=== PATIENT | female | born 1965 | race African-American/Black ===

== ENCOUNTER 2018-07-15 20:43 | Inpatient (IN) ==
[2018-07-15] MEDS ORDERED: G.I. COCKTAIL PO ONE (21:09)
[2018-07-15] MEDS ORDERED: PROTONIX PO ONE (21:10)
[2018-07-15] MEDS ORDERED: BENTYL IM ONE (21:10)
[2018-07-15 21:43] LABS: BASO# 0.03 X1000 (0.0-0.2); BASO% 0.3 % (0.0-0.8); EOS# 0.18 X1000 (0.0-0.7); EOS% 1.8 % (0.0-10.0); HEMATOCRIT 41.6 % (37.0-47.0); HEMOGLOBIN 14.1 g/dL (12.0-16.0); LYMPH# 2.57 X1000 (1.2-3.4); LYMPH% 26.2 % (20.5-51.1); MCH 28.1 PG (27-31); MCHC 33.9 g/dL (33-37); MONO% 9.2 % (1.7-9.3); MPV 12.7 FL (7.4-10.4); NEUT# 6.13 X1000 (1.4-6.5); NEUT% 62.5 % (42.2-75.2); PLT 214 X1000 (130-400); RBC 5.01 XMIL (4.2-5.4); RDW 13.9 % (11.5-14.5); WBC 9.81 X1000 (4.8-10.8)
[2018-07-15] MEDS ORDERED: ZOFRAN IM ONE (21:49)
[2018-07-15] MEDS ORDERED: NS 1,000 ML IV ONE (22:07)
[2018-07-15 22:21] LABS: AGAP 14; ALB/GLOB RATIO 0.9; ALBUMIN 3.8 g/dL (3.5-5.0); ALKALINE PHOSPHATASE 192 U/L (32-104); AMYLASE 62 U/L (20-200); BUN 10 mg/dL (8-22); CALCIUM 9.6 mg/dL (8.8-10.2); CHLORIDE 92 mmol/L (98-107); COSMO 291; CREATININE 0.8 mg/dL (0.5-0.9); ESTIMATED GFR > 60; GOT 12 U/L (10-30); GPT 12 U/L (10-36); LIPASE 120 U/L (13-60); POTASSIUM 4.3 mmol/L (3.5-5.1); SODIUM 129 mmol/L (136-145); TCO2 23 mmol/L (25-35); TOTAL BILIRUBIN 0.58 mg/dL (0.20-1.00); TOTAL PROTEIN 7.9 g/dL (6.3-8.3)
[2018-07-15 22:22] LABS: GLUCOSE 691 mg/dL (70-104)
[2018-07-15 22:47] LABS: BILIRUBIN URINE NEGATIVE (NEGATIVE); BLOOD URINE NEGATIVE (NEGATIVE); COLOR STRAW; GLUCOSE URINE >1000 mg/dL (NEGATIVE); KETONE URINE TRACE mg/dL (NEGATIVE); LEUKOCYTES URINE NEGATIVE (NEGATIVE); NITRITE URINE NEGATIVE (NEGATIVE); PH URINE 5.5; PROTEIN URINE NEGATIVE (NEGATIVE); SP GRAVITY URINE 1.033; TURBIDITY URINE CLEAR (CLEAR); UR EPITHELIAL CELLS <10 /HPF (<10); URINE BACTERIA NEGATIVE /HPF; URINE RBC <10 /HPF (<10); URINE SOURCE CLEAN CATCH; URINE WBC <10 /HPF (<10); UROBILINOGEN URINE NORMAL (NORMAL)
[2018-07-15] MEDS ORDERED: HUMULIN R IV ONE (22:53)
[2018-07-16 00:08] LABS: ALLEN TEST YES; BE 1.9 mmoll (-3.0-3.0); BLOOD TYPE ARTERIAL; HCO3-(ACT) 26.3 mmoll (20.0-26.0); METHB 0.9 % (0.0-1.5); O2(CT) 18.7 mL/dL (15.0-23.0); O2HB 94.4 % (95.0-99.0); PCO2(98.6) 41 mmHg (35-45); PO2(98.6) 79 mmHg (60-100); SAMPLE BLOOD; SAO2 96.6 % (95.0-100.0); THB 14.1 g/dL (11.5-17.4); pH(98.6) 7.42 (7.35-7.45)
[2018-07-16 00:09] LABS: MODALITY ROOM AIR
--- NOTE | 2018-07-16 01:05 | HISTORY AND PHYSICAL ---
PRIMARY CARE PHYSICIAN: Dr. Mae. CHIEF COMPLAINT: Nausea, epigastric pain and urinary frequency for the past week. HISTORY OF PRESENTING ILLNESS: The patient is a 53-year-old female with a history of sarcoidosis who presented to the emergency department with a 1-week history of having persistent nausea, epigastric pain and increased urinary frequency. The patient states that the pain was worsening and she was having more nausea and subsequently she had come to the emergency department. In the ED she was evaluated, she had laboratories drawn that did show that she had elevated blood glucose in the 600 range, and also elevated lipase. Due to the suspicion of pancreatitis it was thought that she would need admission for further management. At the time of my examination the patient denied any headache, fever, chills, chest pain or shortness of breath, but complained of nausea, epigastric pain, increased urinary frequency and thirst. PAST MEDICAL HISTORY: Includes sarcoidosis. PAST SURGICAL HISTORY: Cholecystectomy. ALLERGIES: Codeine. CURRENT MEDICATIONS: None. SOCIAL HISTORY: No history of smoking. Admits to social alcohol use. Denies any illicit drug use. FAMILY HISTORY: No history of coronary disease. REVIEW OF SYSTEMS: Fourteen point review of system is as in HPI. Other systems negative. PHYSICAL EXAMINATION: GENERAL: A cooperative friendly female. She is resting comfortably now. VITAL SIGNS: Temperature 98.3 degrees, pulse 74, respiration 18, blood pressure 154/97. HEENT: Atraumatic, normocephalic. Extraocular movements intact. PERRLA. NECK: Supple. CHEST: Clear to auscultation. CARDIOVASCULAR: Regular rate and rhythm. S1, S2. ABDOMEN: Soft. Epigastric tenderness. EXTREMITIES: No edema. NEUROLOGIC: Awake, alert and oriented x3. : No bladder distention. SKIN: Warm. LABORATORIES AND STUDIES: WBC is 9.81, hemoglobin 14.1, hematocrit 41.6, platelets 214,000. Lipase is 120, glucose 61, sodium 129, potassium 4.3, chloride 92, CO2 of 23, BUN is 10, creatinine is 0.8, glucose is 691. ASSESSMENT: The patient is a 53-year-old female with a history of sarcoidosis who presented to emergency department with a 1-week history of persistent nausea and epigastric pain. She was also having increased thirst and frequency during this time. She was evaluated in the emergency department. She had elevated lipase and was suspicious for pancreatitis. Subsequently she will need admission for further management. 1. Suspected pancreatitis. 2. Hypoglycemia. We will need to rule out new onset of diabetes. 3. Abnormal CT- with suspicious of crohns PLAN: 1. We will admit the patient to the medical floor with telemetry. 2. We will keep the patient NPO. Continue supportive treatment, IV fluids, antiemetics, pain control. 3. We will monitor blood glucose and put the patient on a sliding scale insulin regimen. 4. Consult GI 5. Put the patient on DVT prophylaxis with SCDs. 6. We will continue to follow and reassess and make further recommendation based on the patient's clinical course. cc: Sage Levin MD MTDD
[2018-07-16] MEDS ORDERED: ZOFRAN IV PRN (01:08)
--- NOTE | 2018-07-16 01:08 | PROVIDER DOCUMENTATION ---
This chart was entered by Soo Argueta Scribe, acting as scribe for Anabel Carballo MD. HPI-Abdominal Pain/GI Problem - General Chief Complaint: Epigastric Pain Stated Complaint: MID-STOMACH PAIN, ESOPHAGUS PAIN Time Seen by Provider: 07/15/18 20:49 Source: patient Allergies/Adverse Reactions: Patient Allergies Allergy/AdvReac Type Severity Reaction Status Date / Time codeine Allergy HIVES Verified 07/15/18 20:51 Home Medications: Home Medication List Medication Instructions Recorded Confirmed Last Taken Type NK [No Home Medications] 07/15/18 07/15/18 Unknown History - History of Present Illness-ABD Nature of Presenting Problems: 53 yof presents to er w/co mid upper stomach pain that radiates into esophagus and has been in consistent pain since 07/08. pt states she caught a cold few w eeks ago and pain has been persistent since then. pt has dry mouth, nausea and cannot eat or drink. pt states water tastes like "lead." pt had diarrhea last week but has since resolved. pt denies dysuria, and vomiting. pt works at [employer] and says she pushes herself hard at work despite pain. Abdominal Pain Onset Location: reports: epigastric Pain Radiation: reports: other (esophagus) Quality of Pain: reports: burning, pressure Severity in ED: reports: mild Timing: reports: still present Review of Systems - Adult - REVIEW OF SYSTEMS - ADULT Constitutional: reports: no symptoms reported Eyes: reports: no symptoms reported Ears, Nose, Mouth & Throat: reports: no symptoms reported Cardiovascular: reports: no symptoms reported Respiratory: reports: no symptoms reported Gastrointestinal: reports: see HPI, abdominal pain (epigastric), diarrhea (last wk), nausea, poor appetite. denies: hematemesis, constipation, vomiting Genitourinary: reports: no symptoms reported. denies: dysuria Musculoskeletal: reports: no symptoms reported Integumentary: reports: no symptoms reported Neurological: reports: no symptoms reported Psychiatric: reports: no symptoms reported Endocrine: reports: no symptoms reported Hematologic/Lymphatic: reports: no symptoms reported Allergic/Immunologic: reports: no symptoms reported All Other Systems: Reviewed and Negative Past History - Adult - PAST MEDICAL HISTORY-ADULT Review of Records: reports: Old Records Reviewed, Nursing Assessment Review, Medications Reviewed, Social history reviewed & non-contributory. Major Childhood Illnesses: reports: denies history Cardiovascular: reports: denies history Respiratory: reports: denies history Gastrointestinal: reports: GERD Obstetrical/Gynecological: reports: ectopic Genitourinary: reports: denies history Musculoskeletal: reports: denies history Neurological: reports: denies history Endocrine/Immune: reports: denies history Other Conditions: reports: other (sarcidosis) - PRIOR SURGERIES/PROCEDURES Surgical/Procedure History: reports: cholecystectomy, , other (collapsed tear ducts) - PRIOR HOSPITALIZATIONS Prior Hospitalizations: reports: none - IMMUNIZATION STATUS Childhood Immunizations: UTD, See Nurse Assessment Flu Vaccine: See Nurse Assessment - FAMILY HISTORY Family History: reviewed, not pertinent - SOCIAL HISTORY Smoking: other (former) Substance Use: alcohol Alcohol Use Frequency: rarely Physical Exam-General - PHYSICAL EXAM-ADULT Initial Vital Signs Reviewed: Yes - CONSTITUTIONAL General Appearance: alert, mild distress, obese. negative: lethargic, slow to respond, obtunded - EYES Eyes: PERRL/EOMI, other (eyes watery). negative: pale conjunctivae, photophobia, sclera injected - HEAD, EARS, NOSE, MOUTH & THROAT HENMT: normocephalic/atraumatic, moist mucous membranes, normal ENT inspection - NECK Neck: non-tender, full range of motion, supple - RESPIRATORY Respiratory: chest non-tender, lungs clear, normal breath sounds - CARDIOVASCULAR Cardiovascular: normal peripheral pulses, regular rate, rhythm - GASTROINTESTINAL (ABDOMEN) Abdominal Exam: normal bowel sounds, soft, tenderness (epigastric). negative: non tender, distended, guarding, rigid - LYMPHATIC Lymphatic: no adenopathy - MUSCULOSKELETAL Back Exam: normal inspection, no CVA tenderness, no vertebral tenderness Extremity: normal range of motion, non-tender, normal inspection Peripheral Pulses: radial (R): 2+, radial (L): 2+ - SKIN Integumentary: normal color, normal turgor - NEUROLOGIC Neurologic: patient navigator II-XII nml as tested, grossly normal, no motor/sensory deficits - PSYCHIATRIC Psych/Mental Status: normal mood/affect, normal thought content, normal thought process, oriented x 3 Progress - PLAN OF CARE/RESULTS Progress/Plan/Lab Results: Vital Signs - 8 hr 07/15/18 20:46 Temperature 98.3 F Pulse Rate 74 Respiratory Rate 18 Blood Pressure 154/97 O2 Sat by Pulse Oximetry 97 Result Diagrams: 07/15/18 21:32 07/15/18 21:32 - EKG 1 Time of EKG reading by physician:: 21:22 EKG Read and Signed by:: Vernon Montero EKG Interpretation (*Must complete 3 of following elements*): Abnormal Rate: 71 Rhythm: NSR [place]: normal FL Interval: normal ST Wave: non-specific ST changes (nonspecific st and t wave abnormality) - CT/MRI 1 CT Study: Abdomen, Pelvis Impression: Abnormal (Impression: 1. Possible inflammatory bowel disease such as Crohn's involving the cecum, ascending colon and terminal most ileum. Findings are new compared to previous exam. 2. Interval resolution of splenomegaly. Postcholecystectomy change redemonstrated. 3.dilated small bowel in the rigth abdomen may be secondary to distel ileum stricture.) - CONSULTS/PCP/HOSPITALIST Notification #1 *Consult/PCP/Hospitalist*: Dr. Levin Time Discussed: 23:24 Consult Disposition: Admit (Hx, PE and patient care discussed. Dr. Levin request CT badomen/pelvis with IV contrast.) Departure - Departure Date of Disposition Decision: 07/15/18 Time of Disposition Decision: 23:26 DIAGNOSIS: Hyperglycemia Pancreatitis Qualifiers: Chronicity: acute Pancreatitis type: unspecified pancreatitis type Acute pancreatitis complication: unspecified Qualified Code(s): K85.90 - Acute pancreatitis without necrosis or infection, unspecified Abdominal pain Qualifiers: Abdominal location: epigastric Qualified Code(s): R10.13 - Epigastric pain Disposition: ADMITTED INPATIENT 09 Certified Medical Emergency: Emergent Condition: Stable - Critical Care Note This patient required my direct & personal management of CC.: No Attestation - Physician/ LIZBETH Attestation Patient care was provided by Advanced Practice Provider:: No The physician spent face to face time with patient:: Yes Advanced Practice Provider documentation review:: Supervising physician onsite and consulted in the evaluation and care of this patient. The physician did have a face to face encounter with the patient. This chart was documented by the indicated scribe, (Soo Argueta Scribe) and accurately reflects the services I performed and decisions made by me, Anabel Colindres MD, as attested by the provider's signature.
[2018-07-16] MEDS: NS 1,000 ML IV SCH ×3 (01:39→16:51)
[2018-07-16] MEDS: MORPHINE IV PRN ×3 (03:25→18:55)
[2018-07-16] MEDS: HUMULIN R SUBQ SCH ×5 (06:27→20:49)
--- NOTE | 2018-07-16 09:24 | Diag Imaging Result Doc PS360 ---
EXAM: CT ABD/PELVIS W/IV CONT ONLY INDICATION: epigastric pain, high lipase, hyperglycemia TECHNIQUE: This exam was performed using automated exposure control, adjustment of mA or kV according to patient size, and/or use of iterative reconstruction technique. COMPARISON: 09/08/2016 FINDINGS: There has been a prior cholecystectomy. The splenomegaly seen on the previous study has completely resolved. The spleen appears normal on the current study. The liver, pancreas, adrenal glands, kidneys, and urinary bladder are unremarkable. The reproductive tract is unremarkable as imaged. The appendix is normal. There is wall thickening and moderate distention of the mid and distal ileum extending to the ileocecal valve. There is feculent material in these loops of bowel indicating slowed transit. This indicates ileitis. Infectious etiologies and an inflammatory process such as Crohn's ileitis should be considered. The cecum and ascending colon are nondistended and there is fatty infiltration of the wall of the ascending colon. The remainder of the GI tract is grossly unremarkable. The bony structures are intact. IMPRESSION: 1.Long segment of moderately distended ileum may up to the ileocecal valve with wall thickening indicating ileitis. Consider infectious and inflammatory etiologies. 2.Interval resolution of the splenomegaly seen on the previous study. 3.The pancreas appears normal. Electronically signed by Alex Argueta 07/16/2018 9:22 AM
[2018-07-16 11:07] LABS: BASO# 0.02 X1000 (0.0-0.2); BASO% 0.3 % (0.0-0.8); EOS# 0.14 X1000 (0.0-0.7); EOS% 1.8 % (0.0-10.0); HEMATOCRIT 39.1 % (37.0-47.0); LYMPH# 2.94 X1000 (1.2-3.4); LYMPH% 38.7 % (20.5-51.1); MCH 28.3 PG (27-31); MCHC 33.2 g/dL (33-37); MCV 85.2 FL (81-99); MONO# 0.78 X1000 (0.11-0.59); MONO% 10.3 % (1.7-9.3); MPV 12.1 FL (7.4-10.4); NEUT# 3.72 X1000 (1.4-6.5); NEUT% 48.9 % (42.2-75.2); PLT 201 X1000 (130-400); RBC 4.59 XMIL (4.2-5.4); RDW 14.1 % (11.5-14.5)
[2018-07-16 11:41] LABS: CHOLESTEROL 157 mg/dL (0-200); HDL 44 mg/dL (45-65); LDL 91 mg/dL; TRIGLYCERIDES 109 mg/dL (35-135); VLDL 22 mg/dL
[2018-07-16 11:43] LABS: AGAP 9; ALBUMIN 3.3 g/dL (3.5-5.0); ALKALINE PHOSPHATASE 156 U/L (32-104); BUN 9 mg/dL (8-22); CHLORIDE 104 mmol/L (98-107); COSMO 291; CREATININE 0.8 mg/dL (0.5-0.9); ESTIMATED GFR > 60; GLUCOSE 325 mg/dL (70-104); GOT 10 U/L (10-30); GPT 11 U/L (10-36); HEMOGLOBIN A1C 12.6 % (4.8-6.0); POTASSIUM 3.6 mmol/L (3.5-5.1); SODIUM 140 mmol/L (136-145); TCO2 27 mmol/L (25-35); TOTAL BILIRUBIN 0.62 mg/dL (0.20-1.00); TOTAL PROTEIN 6.6 g/dL (6.3-8.3)
--- NOTE | 2018-07-16 12:43 | PROGRESS NOTE ---
DATE: 07/16/2018 SUBJECTIVE: This patient is still complaining of abdominal pain. She is not having nausea or vomiting at this moment. Upon admission, her blood sugar was really high around 600, now is in the 300s, and we will continue with sliding scale insulin. She has pseudohyponatremia. Lipase level was 120. I will ask for a lipid panel and a new CBC, CMP on this patient, which are pending right now. Abdomen and pelvis CT scan showed long segment of moderately distended ileus, may up to the ileocecal valve with wall thickening indicating ileitis, consider infectious and inflammatory etiologies. Interval resolution of the splenomegaly seen on the previous study, and the pancreas appears normal, but the lipase level is high. OBJECTIVE: Vital Signs: Temperature 97.4 degrees, pulse 63, respiratory rate 20, blood pressure 139/93, oxygen saturation 100% on room air. HEENT: Head normocephalic. No trauma. PERRLA. Neck: Supple. No JVD. No masses. Central trachea. Chest: Clear to auscultation. No wheezing. No rales. Abdomen: Soft. Generalized tenderness to palpation mostly at the level of the periumbilical area. Extremities: No edema, no clubbing, no cyanosis. Neurological examination: The patient is alert and oriented x3. No focal deficits. LABORATORY: Pending laboratory today. ASSESSMENT AND PLAN: 1. Likely pancreatitis, continue with intravenous fluids. This patient has been placed nothing by mouth. Lipase level was elevated at 120. We will continue with the same management. 2. Possible ileitis, which could be infectious versus inflammatory. This patient is not having fever, chills and the leukocyte count is normal. We have requested an evaluation by Gastroenterology Department to rule out any other condition. 3. Elevated glucose level. I have requested hemoglobin A1c. As per the patient, she has never been diabetic before, but probably this is a new onset. She is getting a sliding scale insulin and fluids. 4. History of sarcoidosis. Monitor as an outpatient. cc: Sam Sadler MD
--- NOTE | 2018-07-16 16:55 | Diag Imaging Result Doc PS360 ---
EXAM: US ABDOMEN-COMPLETE INDICATION: Abdominal pain COMPARISON: None. FINDINGS: There has been a prior cholecystectomy. The common bile duct is normal in diameter. The liver is grossly unremarkable with no discrete hepatic mass identified. Portal venous flow is hepatopetal. The pancreas is obscured by bowel gas. The distal aorta is also obscured. The remainder of the aorta and IVC are unremarkable. The spleen is unremarkable. The kidneys are grossly unremarkable. IMPRESSION: Essentially unremarkable abdominal ultrasound. Electronically signed by Alex Argueta 07/16/2018 4:53 PM
--- NOTE | 2018-07-16 19:15 | GASTROENTEROLOGY CONSULTATION ---
DATE: 07/16/2018 REASON FOR CONSULTATION: Abdominal pain, nausea and frequency of urination. HISTORY OF PRESENT ILLNESS: A 53-year-old lady with history of sarcoidosis came in with increased urinary frequency, nausea, epigastric pain and abdominal pain. The patient does not have any fever or chills, or any other constitutional symptoms. PAST MEDICAL HISTORY: Sarcoidosis. PAST SURGICAL HISTORY: Cholecystectomy. ALLERGIES: Codeine. MEDICATIONS: None. SOCIAL HISTORY: Negative. FAMILY HISTORY: CAD. REVIEW OF SYSTEMS: Otherwise negative. PHYSICAL EXAMINATION: Young lady who is comfortable and cooperative. Vital signs: Temperature 98 degrees, pulse 74, respirations 18, blood pressure 150/97. HEENT: No conjunctival pallor or scleral icterus. Neck supple. Trachea in midline. Abdomen mildly distended. Some tenderness in the epigastric and right lower quadrant. Bowel sounds are hyperactive. LABORATORY DATA: Hemoglobin and hematocrit stable. White count is normal. Glucose is 691. Lipase is slightly elevated. LFTs are also elevated with alkaline phosphatase. IMPRESSION AND PLAN: 1. Rule out biliary pancreatitis. She needs ultrasound of the gallbladder, which I believe was done today. We will watch. 2. CT scan suspicious of Crohn disease. We will investigate it further. 3. Hyperglycemia, possibly secondary to pancreatitis. 4. Deep vein thrombosis prophylaxis. 5. Gastrointestinal prophylaxis. Continue correcting the glucose. Clear liquids and advance the diet. Continue proton pump inhibitor. We will investigate if the patient has a possibility of Crohn disease. Should be able to do this early next week, depending on the clinical course. cc: Agatha Cheung MD
[2018-07-17] MEDS: HUMULIN R SUBQ SCH ×4 (06:26→20:54)
[2018-07-17 07:20] LABS: BASO# 0.01 X1000 (0.0-0.2); BASO% 0.1 % (0.0-0.8); EOS# 0.13 X1000 (0.0-0.7); EOS% 1.8 % (0.0-10.0); HEMATOCRIT 38.3 % (37.0-47.0); HEMOGLOBIN 12.3 g/dL (12.0-16.0); LYMPH# 2.62 X1000 (1.2-3.4); LYMPH% 35.4 % (20.5-51.1); MCHC 32.1 g/dL (33-37); MCV 87.2 FL (81-99); MONO# 0.76 X1000 (0.11-0.59); MONO% 10.3 % (1.7-9.3); MPV 12.8 FL (7.4-10.4); NEUT# 3.89 X1000 (1.4-6.5); NEUT% 52.4 % (42.2-75.2); PLT 177 X1000 (130-400); RBC 4.39 XMIL (4.2-5.4); RDW 14.6 % (11.5-14.5); WBC 7.41 X1000 (4.8-10.8)
[2018-07-17] MEDS: TYLENOL PO PRN ×2 (07:40→15:51)
[2018-07-17] MEDS: NS 1,000 ML IV SCH ×2 (07:40→21:37)
[2018-07-17 07:48] LABS: AGAP 10; BUN 7 mg/dL (8-22); CALCIUM 8.1 mg/dL (8.8-10.2); CHLORIDE 105 mmol/L (98-107); COSMO 285; CREATININE 0.6 mg/dL (0.5-0.9); ESTIMATED GFR > 60; GLUCOSE 230 mg/dL (70-104); LIPASE 71 U/L (13-60); POTASSIUM 3.9 mmol/L (3.5-5.1); SODIUM 140 mmol/L (136-145); TCO2 25 mmol/L (25-35)
--- NOTE | 2018-07-17 11:31 | PROGRESS NOTE ---
DATE: 07/17/2018 SUBJECTIVE: This patient is lying comfortably in bed. She is complaining of abdominal pain but basically at the level of the lower abdomen. She is not having nausea or vomiting. She is tolerating a little bit of fluids. I will continue with the same management. I asked for a hemoglobin A1c. That is elevated at 12.6. I talked to the patient about the results and likely this patient has diabetes. We will monitor and we will continue with the same management. OBJECTIVE: Vital Signs: Temperature 97.7 degrees, pulse 52, respiratory rate 18, blood pressure 114/74, oxygen saturation 99 on room air. HEENT: Head normocephalic. No trauma. PERRLA. Neck: Supple. No JVD. No masses. Central trachea. Chest: Clear to auscultation. No wheezing. No rales. Abdomen: Soft. Generalized tenderness to palpation but mainly at the level of the lower abdomen. Extremities: No edema, no clubbing, no cyanosis. Neurological Examination: The patient is alert and oriented x3. No focal deficits. Laboratory: WBCs 7.4, hemoglobin 12.3, hematocrit 38.3, platelets 177,000. Sodium 140, potassium 3.9, chloride 105, bicarbonate 25, BUN 7, creatinine 0.6, glucose 230, calcium 8.1. ASSESSMENT AND PLAN: 1. Possible ileitis which could be infectious versus inflammatory. Gastroenterology department has evaluated this patient. CT scan is suspicious of Crohn's disease. They will start working this patient up to rule it out. We will continue with intravenous fluids. We will continue with the same management for now. I will hold on any kind of antibiotics for now since this patient is not having fever and the leukocyte count has been normal since admission. I will wait for gastroenterology recommendations. 2. Elevated pancreatic enzymes. Probably, this patient has a little bit of pancreatitis even though the CT scan and ultrasound are normal. I will continue with intravenous fluids. She is tolerating a little bit of the diet. Lipase level decreased from 120 to 71. 3. New onset of diabetes. Hemoglobin A1c is 12.6. I discussed the results with the patient. Blood sugar seems to be a little bit better. We will continue with the same management. 4. History of sarcoidosis. Monitor as an outpatient. cc: Sam Sadler MD
[2018-07-17] MEDS: MORPHINE IV PRN (13:37)
--- NOTE | 2018-07-17 15:11 | GASTROENTEROLOGY PROGRESS NOTE ---
DATE: 07/17/2018 SUBJECTIVE: The patient is lying comfortably in bed. Tolerating liquids. Pain is better, moved down into the lower abdomen. She is passing gas. OBJECTIVE: Vital Signs: Temp 97.7, pulse 52, respirations 18, blood pressure 114/74. O2 sat 99%. HEENT: Conjunctival pallor. Neck: Supple. Trachea midline. Heart: Normal. Lungs: Normal. Abdomen: Mildly tender in the lower abdomen, left lower quadrant. Bowel sounds are present. LABORATORY DATA: Hemoglobin and hematocrit is stable. Glucose is down to 230. Alkaline phosphatase is slightly elevated. IMPRESSION AND PLAN: 1. I initially thought patient may have had biliary pancreatitis, but looking at hemoglobin A1c which is high, the patient may a diabetic that she did not know of. 2. History of sarcoidosis. 3. CT scan and ultrasound are normal, not showing any gallbladder disease. Lipase has come back to normal. 4. Ileitis. Will work up. 5. History of sarcoidosis. 6. GI prophylaxis. 7. DVT prophylaxis. We will advance the diet. [*] over this and will plan doing endoscopy if she is not having any further problems later as an outpatient. cc: Agatha Cheung MD
[2018-07-18] MEDS: TYLENOL PO PRN ×2 (00:38→20:54)
[2018-07-18] MEDS: HUMULIN R SUBQ SCH ×4 (05:59→21:00)
[2018-07-18 07:43] LABS: AGAP 10; ALB/GLOB RATIO 0.9; ALBUMIN 2.9 g/dL (3.5-5.0); ALKALINE PHOSPHATASE 123 U/L (32-104); BUN 6 mg/dL (8-22); C REACTIVE PROT QUANT 8.95 mg/L (0.00-5.00); CALCIUM 8.2 mg/dL (8.8-10.2); CHLORIDE 108 mmol/L (98-107); COSMO 284; CREATININE 0.5 mg/dL (0.5-0.9); ESTIMATED GFR > 60; GLUCOSE 186 mg/dL (70-104); GOT 13 U/L (10-30); GPT 10 U/L (10-36); POTASSIUM 3.2 mmol/L (3.5-5.1); SODIUM 141 mmol/L (136-145); TCO2 23 mmol/L (25-35); TOTAL BILIRUBIN 0.53 mg/dL (0.20-1.00)
[2018-07-18] MEDS ORDERED: KLOR-CON PO ONE (08:15)
--- NOTE | 2018-07-18 08:16 | EKG Report ---
Test Performed on : 07/15/2018 9:22:06 PM Test Reason : epigastric pain Blood Pressure : / mmHG Vent. Rate : 071 BPM Atrial Rate : 071 BPM P-R Int : 140 ms QRS Dur : 088 ms QT Int : 394 ms P-R-T Axes : 017 -21 027 degrees QTc Int : 428 ms Normal sinus rhythm. Nonspecific ST and T wave abnormality Abnormal ECG When compared with ECG of 04-JAN-2014 16:45, Criteria for Anterior infarct are no longer present ST now depressed in Anterior leads Unconfirmed Result
--- NOTE | 2018-07-18 10:09 | PROGRESS NOTE ---
DATE: 07/18/2018 SUBJECTIVE: Patient is resting comfortably in bed. She is still complaining of abdominal pain at the level of the lower abdomen, no nausea, no vomiting, and she is tolerating p.o. We will continue with the same management. Hemoglobin A1c is elevated at 12.6. I talked to the patient about the results. She has diabetes. She is not on IV fluids since the WBC has been normal seen since admission. No fever or chills. Gastroenterology following this patient. We will wait for recommendations. OBJECTIVE: Vital Signs: Temperature 98 degrees, pulse 61, respiratory rate 18, blood pressure 131/98, oxygen saturation 99 on room air. HEENT: Head normocephalic no trauma PERRLA. Neck: Supple. No JVD. No masses. Central trachea. Chest: Clear to auscultation. No wheezing. No rales. Abdomen: Soft. Generalized tenderness to palpation mainly at the level of the lower abdomen. Extremities: No edema, no clubbing, no cyanosis. Neurological: The patient is alert and oriented x3. No focal deficits. LABORATORY: Sodium 141, potassium 3.2, chloride 108, bicarbonate 23, BUN 6, creatinine 0.5, glucose 186, calcium 8.2, albumin 2.9. ASSESSMENT AND PLAN: 1. Possible ileitis which probably is inflammatory. Gastroenterology Department evaluated this patient. WBC has been normal and no fever or chills. CT scan is suspicious of Crohn's disease. They have started this patient's workup already. We will continue with IV fluids, but I will switch the normal saline to half normal saline. We will continue with the same management for now. 2. Elevated pancreatic enzymes. Probably this patient also had some pancreatitis, but CT scan and ultrasound were normal. We will continue with intravenous fluids. She is tolerating her diet. Lipase level has been decreasing. 3. New onset diabetes. Hemoglobin A1c is 12.6. I have discussed the results with the patient. Blood sugar seems to be getting better. Hopefully, she can be discharged home with p.o. treatment and also insulin. For now we will continue with sliding scale insulin and pattern of blood sugar. 4. History of sarcoidosis. This has been monitored as an outpatient. cc: Sam Sadler MD
--- NOTE | 2018-07-18 10:18 | GASTROENTEROLOGY PROGRESS NOTE ---
DATE: 07/18/2018 SUBJECTIVE: Resting in bed. She is complaining of abdominal pain. She has not had a bowel movement for the last 3 days. She has been eating less. Her sedimentation rate is pending. A CRP is high at 8.9. Her amylase and lipase are going down. She has history of chronic gastrointestinal symptoms for many months and years which got worse after eating. I suspect this could be secondary to the small bowel stricture we are seeing. We need to rule out Crohn's disease. We have ordered blood work like IBD panel. We will schedule for colonoscopy tomorrow. She denies any fevers, rigors, or chills. OBJECTIVE: Vital Signs: Temperature 98 degrees, pulse of 67, respiratory rate 18, blood pressure 131/98, saturating 98% on room air, body weight of 203 pounds and 4 ounces, BMI of 37.2 kg. General: Ms. Sandra España is lying in bed in no acute distress. HEENT: No pallor. No icterus. Pupils equal, reactive to light. Neck: Supple. Abdomen: Obese, discomfort. No organomegaly. No rebound or guarding. Extremities: No cyanosis, clubbing. Neuro: Alert, awake, oriented. LABS: Hemoglobin 12.3, hematocrit 38.3, white count of 7.41, platelet count of 177,000. Sodium 141, potassium 3.2, chloride 100, bicarb 23, anion gap 10, BUN of 6, creatinine 0.5, glucose of 186, calcium 8.2, total bilirubin is 0.53, AST 13, ALT 10, alkaline phosphatase 122, total protein is 6, albumin of 2.9, total CRP is 8.95, lipase of 71. Acetone level is negative. Microbiology studies: None. IMPRESSION AND PLAN: 1. Long segment of moderately distended ileum up to the ileocecal valve with wall thickening indicating ileitis per the CT scan. Will check IBD panel. Check sedimentation rate. We will schedule for colonoscopy/ileal colonoscopy tomorrow with Dr. Rangel. The risks, benefits, indications, and alternatives were discussed the patient. The patient will be on clear liquid diet. We will start on GoLYTELY today. 2. Mildly elevated lipase which could be secondary to small bowel origin. Region of pancreas appears normal on the CT scan. 3. Obesity. Patient counseled to lose weight. 4. GI prophylaxis with PPIs. 5. Pain control with intravenous morphine. 6. Bowel regimen with Dulcolax and MiraLAX. 7. We will keep her on IV fluids and IV antiemetics. The above plans were discussed with the patient and all questions answered. Please call us with any further questions. cc: MD Prema Hooker MD
[2018-07-18] MEDS: MIRALAX PO SCH ×2 (12:03→20:56)
[2018-07-18] MEDS: PROTONIX IV SCH (12:04)
[2018-07-18] MEDS: SODIUM CHLORIDE 0.9% INJ SCH (12:04)
[2018-07-18] MEDS: GOLYTELY PO ONE ×2 (12:10→13:31)
[2018-07-18] MEDS: 1/2 NS 1,000 ML IV SCH (12:10)
[2018-07-18] MEDS ORDERED: MOTRIN PO ONE (14:36)
[2018-07-18] MEDS: MORPHINE IV PRN (14:39)
[2018-07-18] MEDS: DULCOLAX PR SCH (23:30)
[2018-07-19] MEDS: 1/2 NS 1,000 ML IV SCH ×3 (01:38→21:54)
[2018-07-19] MEDS: HUMULIN R SUBQ SCH ×4 (06:52→22:05)
[2018-07-19 06:56] LABS: BASO# 0.02 X1000 (0.0-0.2); BASO% 0.3 % (0.0-0.8); EOS# 0.15 X1000 (0.0-0.7); EOS% 2.3 % (0.0-10.0); HEMATOCRIT 36.8 % (37.0-47.0); HEMOGLOBIN 11.8 g/dL (12.0-16.0); LYMPH# 2.91 X1000 (1.2-3.4); LYMPH% 44.5 % (20.5-51.1); MCH 27.9 PG (27-31); MCHC 32.1 g/dL (33-37); MONO% 9.2 % (1.7-9.3); MPV 12.4 FL (7.4-10.4); NEUT# 2.86 X1000 (1.4-6.5); NEUT% 43.7 % (42.2-75.2); PLT 178 X1000 (130-400); RBC 4.23 XMIL (4.2-5.4); RDW 14.9 % (11.5-14.5); WBC 6.54 X1000 (4.8-10.8)
[2018-07-19 07:19] LABS: AGAP 12; ALBUMIN 2.9 g/dL (3.5-5.0); ALKALINE PHOSPHATASE 110 U/L (32-104); BUN 3 mg/dL (8-22); CALCIUM 8.8 mg/dL (8.8-10.2); CHLORIDE 111 mmol/L (98-107); COSMO 285; CREATININE 0.4 mg/dL (0.5-0.9); ESTIMATED GFR > 60; GLUCOSE 136 mg/dL (70-104); GOT 16 U/L (10-30); GPT 12 U/L (10-36); LIPASE 61 U/L (13-60); POTASSIUM 3.3 mmol/L (3.5-5.1); SODIUM 144 mmol/L (136-145); TCO2 21 mmol/L (25-35); TOTAL BILIRUBIN 0.35 mg/dL (0.20-1.00); TOTAL PROTEIN 5.8 g/dL (6.3-8.3)
[2018-07-19] MEDS ORDERED: DIPRIVAN 1% ONE ×2 (08:52→09:29)
--- NOTE | 2018-07-19 10:38 | OPERATIVE NOTE ---
PROCEDURE DATE: 07/19/2018 PROCEDURE: Colonoscopy with biopsy. PROVIDER: Silvestre Rangel MD. INDICATIONS: Ileitis, rule out Crohn disease. MEDICATIONS: Monitored anesthesia care. DESCRIPTION OF PROCEDURE: Prior to procedure, a history and physical was performed. The patient medication allergies were reviewed. The patient's tolerance to previous anesthesia was also reviewed. The risks and benefits of the procedure and sedation options and risks were discussed with the patient. All questions were answered. Informed consent was obtained. After reviewing the risks and benefits, the patient was deemed in satisfactory condition to undergo the procedure. The colonoscope was passed under direct visualization. Throughout the procedure, the patient's blood pressure, pulse and oxygen saturations were monitored continuously. The colonoscope was introduced through the anus and advanced to the terminal ileum, identified by the appendiceal orifice and ileocecal valve. The colonoscopy was accomplished without difficulty. The quality of the prep was adequate. The patient tolerated the procedure well. COMPLICATIONS: No immediate complications. ESTIMATED BLOOD LOSS: Minimal. FINDINGS: Normal terminal ileum. Random biopsies were obtained with cold forceps to rule out Crohn disease versus infection. Normal colon. Random left and right colon biopsies were obtained to rule out inflammatory bowel disease or microscopic colitis. IMPRESSION: Normal colonoscopy. RECOMMENDATIONS: Await pathology results. Advance diet as tolerated. We will follow with you. Please call with any questions or concerns.
--- NOTE | 2018-07-19 13:22 | PROGRESS NOTE ---
DATE: 07/19/2018 SUBJECTIVE: Patient reports still having some pain in the epigastric area. Pain is a little bit better, but not completely gone. She has not eaten anything until now. OBJECTIVE: Vitals: Temperature 97.7, heart rate 53, respiratory rate 18, blood pressure 168/95, O2 saturation 100% on room air. General examination: This is a 53-year-old female, lying in bed, in no acute distress. Cardiovascular: Normal S1, S2 heard. No murmurs, gallops, or rubs. Regular rate and rhythm. Respiratory: Clear bilaterally to auscultation. No work of breathing or using accessory muscles. Abdomen: Soft, nontender to palpation. Bowel sounds present. No organomegaly. No signs of peritoneal irritation. Extremities: No clubbing, cyanosis, or edema. Peripheral pulses present in both legs. Neurological: Patient alert, oriented x3. Moves 4 extremities. LABORATORY DATA: CBC unremarkable. BMP shows creatinine 0.4 with potassium 3.3. ASSESSMENT AND PLAN: 1. Possible ileitis. Gastroenterology has performed a colonoscopy today, suspecting for inflammatory bowel disease versus ileitis. Colonoscopy returned normal. Biopsies have been taking for possible microscopic colitis. At this point, we will continue with IV fluids. Pain medication as needed. Diabetic diet has been started. 2. New onset diabetes mellitus, type 2. Hemoglobin A1c at presentation was 12.6. The patient is on sliding scale insulin and Accu-Chek before meals and also at bedtime. 3. Elevated pancreatic enzymes. Lipase is back to normal. Patient is still complaining of some abdominal pain so we will continue with same management. 4. History of sarcoidosis. Aware. DISPOSITION: I think if patient is able to tolerate diet and no other complaints noted tomorrow, she can be discharged tomorrow as well. cc: Kai Navarro MD MTDD
[2018-07-19] MEDS: MORPHINE IV PRN (14:34)
[2018-07-19] MEDS: SODIUM CHLORIDE 0.9% INJ SCH (14:35)
[2018-07-19] MEDS: PROTONIX IV SCH (14:35)
[2018-07-19] MEDS: MIRALAX PO SCH ×2 (14:40→22:03)
[2018-07-19] MEDS: OFIRMEV 1000 MG/ISOTONIC SOLN 1,000 MG/100 ML BOTTLE IV PRN ×2 (15:01→21:49)
[2018-07-19] MEDS: TORADOL IV PRN (15:01)
[2018-07-19] MEDS: DULCOLAX PR SCH (22:03)
[2018-07-20] MEDS: HUMULIN R SUBQ SCH ×4 (06:42→22:58)
[2018-07-20] MEDS: 1/2 NS 1,000 ML IV SCH ×2 (06:44→13:57)
[2018-07-20 06:49] LABS: BASO# 0.04 X1000 (0.0-0.2); BASO% 0.6 % (0.0-0.8); EOS# 0.16 X1000 (0.0-0.7); EOS% 2.2 % (0.0-10.0); HEMATOCRIT 37.7 % (37.0-47.0); HEMOGLOBIN 12.1 g/dL (12.0-16.0); LYMPH# 2.84 X1000 (1.2-3.4); LYMPH% 39.3 % (20.5-51.1); MCH 28.1 PG (27-31); MCHC 32.1 g/dL (33-37); MCV 87.5 FL (81-99); MONO# 0.67 X1000 (0.11-0.59); MONO% 9.3 % (1.7-9.3); MPV 12.2 FL (7.4-10.4); NEUT# 3.51 X1000 (1.4-6.5); NEUT% 48.6 % (42.2-75.2); PLT 180 X1000 (130-400); RBC 4.31 XMIL (4.2-5.4); RDW 14.9 % (11.5-14.5); WBC 7.22 X1000 (4.8-10.8)
[2018-07-20 07:53] LABS: AGAP 14; BUN 6 mg/dL (8-22); CALCIUM 8.8 mg/dL (8.8-10.2); CHLORIDE 111 mmol/L (98-107); COSMO 291; CREATININE 0.6 mg/dL (0.5-0.9); ESTIMATED GFR > 60; GLUCOSE 186 mg/dL (70-104); POTASSIUM 3.4 mmol/L (3.5-5.1); SODIUM 145 mmol/L (136-145); TCO2 20 mmol/L (25-35)
[2018-07-20] MEDS: OFIRMEV 1000 MG/ISOTONIC SOLN 1,000 MG/100 ML BOTTLE IV PRN ×2 (08:08→21:21)
[2018-07-20] MEDS: MIRALAX PO SCH ×2 (08:10→20:30)
[2018-07-20] MEDS: SODIUM CHLORIDE 0.9% INJ SCH (08:11)
[2018-07-20] MEDS: PROTONIX IV SCH (08:11)
[2018-07-20] MEDS: BASAGLAR SUBQ SCH (11:52)
[2018-07-20] MEDS ORDERED: INSULIN PEN NEEDLES ONE (11:55)
--- NOTE | 2018-07-20 12:52 | PROGRESS NOTE ---
DATE: 07/20/2018 SUBJECTIVE: The patient reports feeling fine, denies any abdominal pain. She is not nauseated. OBJECTIVE: Vitals: Temperature 98.1 degrees, heart rate 59, respiratory rate 16, blood pressure 152/90, O2 saturation 99% on room air. General Examination: This is a 53-year-old female, lying in bed, in no acute distress. Cardiovascular: S1, S2 heard. No murmurs, gallops, or rubs. Regular rate and rhythm. Respiratory: Clear bilaterally to auscultation. No work of breathing or using accessory muscles. Abdomen: Soft, a little bit distended, but nontender to palpation. Bowel sounds present. No organomegaly. No signs of peritoneal irritation. Extremities: No clubbing, cyanosis, or edema. Peripheral pulses present in both legs. Neurological: Patient is alert and oriented x3. Moves 4 extremities. LABORATORY DATA: CBC unremarkable. BMP remarkable for blood sugar 186 with potassium 3.4. ASSESSMENT AND PLAN: 1. Possible colitis. Patient has had colonoscopy that is completely normal. The patient does not have any abdominal pain. At this time, we will continue with the same management. I think from a GI standpoint patient can be discharged. 2. New onset diabetes mellitus, type 2. Considering that her blood sugar has been really high at admission and her hemoglobin A1c was 12.6, I prefer to start Lantus 15 units daily. We will continue with sliding scale insulin, and we will start metformin as well. We will see how this patient does. 3. History of sarcoidosis. Aware. 4. Elevated pancreatic enzymes. Aware. Lipase is completely back to normal. We will continue to monitor this patient. DISPOSITION: I think if today patient's blood sugars are better, we can discharge her with pain medications and also Lantus at home. Patient will be referred to her primary care office for following of this diabetes. cc: Kai Navarro MD
--- NOTE | 2018-07-20 16:34 | PROVIDER PROGRESS NOTE ---
Progress Note SUBJECTIVE: No acute overnight events. No N/V/F, CP, SOB. Mild LLQ pain. Tolerating diabetic diet. No BM since colonoscopy. OBJECTIVE: Last Vital Signs Temp 97.4 F L 07/20/18 16:00 Pulse 63 07/20/18 16:00 Resp 16 07/20/18 16:00 BP 153/97 07/20/18 16:00 Pulse Ox 98 07/20/18 16:00 Height 5 ft 2 in Weight 203 lb 4 oz GEN: awake, alert, NAD HEENT: anicteric, MMM NECK: supple, no JVD CV: RRR, no mrg PULM: CTAB; no wrr ABD: soft ND, NABS, mild TTP LLQ, no rebound or guarding EXT: no cce NEURO: nonfocal LABS 07/20/18 07/20/18 06:24 06:24 WBC 7.22 Hgb 12.1 Plt Count 180 Sodium 145 Potassium 3.4 L Chloride 111 H Carbon Dioxide 20 L BUN 6 L D Creatinine 0.6 Glucose 186 H A/P: Ms. Sandra España is a 53 year old woman with history of HTN who presented with generalized fatigue, nausea, abdominal pain, and polyuria found to have new onset diabetes (A1c >12) and ileitis. Elevated inflammatory markers. Colonoscopy yesterday revealed normal TI and colon; random biopsies obtained. Mildly elevated lipase without clinical signs of pancreatitis. She does not appear to have clinical history consistent with Crohn's or UC. IBD panel is pending. She is improving with control of her diabetes and supportive care. Her symptoms could all be uncontrolled diabetes. # Ileitis: unclear etiology; possible infectious; stool studies negative; SB/colon biopsies and IBD panel pending; continue supportive care # Diabetes: uncontrolled; defer mgmt to primary team # Abdominal pain: continue supportive care; improving Patient is ok to be discharged from GI perspective with follow-up in 2-4 weeks
[2018-07-20] MEDS: GLUCOPHAGE PO SCH (17:05)
[2018-07-20] MEDS: DULCOLAX PR SCH (20:35)
[2018-07-21] MEDS: 1/2 NS 1,000 ML IV SCH (03:55)
[2018-07-21] MEDS: HUMULIN R SUBQ SCH (06:20)
[2018-07-21] MEDS: OFIRMEV 1000 MG/ISOTONIC SOLN 1,000 MG/100 ML BOTTLE IV PRN (06:25)
[2018-07-21 07:27] LABS: BASO# 0.02 X1000 (0.0-0.2); BASO% 0.3 % (0.0-0.8); EOS# 0.14 X1000 (0.0-0.7); HEMATOCRIT 37.3 % (37.0-47.0); HEMOGLOBIN 12.1 g/dL (12.0-16.0); IMM GRAN# 0.02 X1000 (0.0-0.04); IMM GRAN% 0.3 % (0.0-0.5); LYMPH# 2.47 X1000 (1.2-3.4); LYMPH% 35.3 % (20.5-51.1); MCH 28.1 PG (27-31); MCHC 32.4 g/dL (33-37); MCV 86.5 FL (81-99); MONO# 0.52 X1000 (0.11-0.59); MONO% 7.4 % (1.7-9.3); MPV 12.5 FL (7.4-10.4); NEUT# 3.83 X1000 (1.4-6.5); NEUT% 54.7 % (42.2-75.2); PLT 193 X1000 (130-400); RBC 4.31 XMIL (4.2-5.4)
[2018-07-21 08:03] LABS: AGAP 11; BUN 7 mg/dL (8-22); CALCIUM 8.5 mg/dL (8.8-10.2); CHLORIDE 108 mmol/L (98-107); COSMO 289; CREATININE 0.6 mg/dL (0.5-0.9); ESTIMATED GFR > 60; GLUCOSE 170 mg/dL (70-104); POTASSIUM 3.3 mmol/L (3.5-5.1); SODIUM 144 mmol/L (136-145); TCO2 25 mmol/L (25-35)
[2018-07-21 08:17] VITALS: BP 170/85
[2018-07-21] MEDS: GLUCOPHAGE PO SCH (08:36)
[2018-07-21] MEDS: PROTONIX IV SCH (08:38)
[2018-07-21] MEDS: MIRALAX PO SCH (08:38)
[2018-07-21] MEDS: SODIUM CHLORIDE 0.9% INJ SCH (08:38)
[2018-07-21] MEDS: BASAGLAR SUBQ SCH (08:38)
[2018-07-21] MEDS: TORADOL IV PRN (08:41)
--- NOTE | 2018-07-21 11:41 | GASTROENTEROLOGY PROGRESS NOTE ---
DATE: 07/21/2018 SUBJECTIVE: The patient is resting in bed. She is feeling better. She denies any new complaints. Denies any nausea or vomiting. Denies any fevers, rigors, or chills. Denies any nausea or vomiting. She is moving her bowels. She is eating better. PHYSICAL EXAMINATION: Vital Signs: Temperature of 97.7 degrees, pulse rate of 50, respiratory rate 18, blood pressure 170/85, saturating 100% on room air. Body weight of 203 pounds 4 ounces. BMI of 37.2 kg/m2. General Appearance: Moderately built, moderately nourished. Sitting in bed, in no acute distress. HEENT: No pallor. No icterus. Pupils equal, reactive to light. Neck: Supple. Abdomen: Obese, soft, nontender, nondistended. No guarding or rebound. Extremities: No cyanosis, clubbing. Neurologic: She is alert, awake, and oriented x3. LABS: Hemoglobin and hematocrit are 12.1 and 37, white count of 7, platelet count of 196,000. Sodium 140, potassium 3.3, chloride 100, bicarb 20, anion gap 11, BUN of 7, creatinine 0.6, glucose of 170, calcium is 8.5. Lipase of 61. Her CRP is 8.95. Her sedimentation rate is 31. Her AST is 16, ALT 12, alkaline phosphatase 110, total protein 5.8, albumin of 2.9. Colonoscopy report was reviewed which showed evidence of normal terminal ileum and normal colon. This was biopsied randomly. Biopsies currently pending. IMPRESSION AND PLAN: 1. Ileitis seen on CT scan but on colonoscopy, the ileum appeared normal. We will follow up on the biopsy results. 2. We will follow up on the inflammatory bowel disease panel. 3. Mildly elevated lipase without clinical signs of pancreatitis. This could be from small bowel origin. We will recheck it as an outpatient in [address] scan did not show evidence of any pancreatitis. 4. Obesity. Patient counseled to lose weight. 5. Diabetes, uncontrolled. Hemoglobin A1c of more than 12. Patient counseled to keep a good control of diabetes. 6. Abdominal pain, is improved. 7. Generalized fatigue, nausea, and polyuria. Could be all secondary to new onset diabetes. She will need to follow with her primary care doctor as an outpatient for further management. 8. Gastrointestinal prophylaxis with proton pump inhibitors. 9. Bowel regimen with MiraLAX. 10. The above plan was discussed with the patient and all of her questions were answered. Please call us with any further questions. Patient to follow up in the clinic in 4 weeks of discharge with Dr. Rangel. cc: MD Prema Hooker MD
--- NOTE | 2018-07-21 12:04 | DISCHARGE SUMMARY ---
ADMISSION DATE: 07/15/2018 DISCHARGE DATE: 07/21/2018 ADMISSION DIAGNOSES: 1. Suspected pancreatitis. 2. Hypoglycemia. 3. Abnormal CT suspicious of Crohn's. DISCHARGE DIAGNOSES: 1. Possible colitis. Normal colonoscopy ruling out Crohn's. 2. New onset diabetes mellitus type 2. Hemoglobin A1c of 12.6. She is going to be started on Lantus 15 units daily along with sliding scale and metformin. 3. History of sarcoidosis. 4. Elevated pancreatic enzymes but has resolved. CONSULTATIONS: Dr. Cheung with Gastroenterology. PROCEDURES OR SURGERIES: On 07/19/2018 the patient underwent a colonoscopy with biopsy to help rule out for possible Crohn's. Biopsies were obtained to rule out inflammatory bowel disease or microscopic colitis. Pathology is pending. HOSPITAL COURSE: On 07/16/2018 Ms. Sandra España, a 53-year-old female with a history of sarcoidosis, presented to the Emergency Room with 1 week's complaints of persistent nausea, epigastric pain, and increased urination. The pain had worsened and the nausea and vomiting had become more frequent so she came to the Emergency Department. Evaluation revealed a blood glucose level of 600 and an elevated lipase as well. There was suspicion for pancreatitis and she was admitted for further workup. She had an abdominal CT that was performed that was suspicious of Crohn's and Gastroenterology was consulted. She was given IV fluids, antiemetics, and pain medication. The patient underwent a colonoscopy to rule out possible Crohn's, irritable bowel disease, or microscopic colitis. The colonoscopy was normal and biopsies were sent for pathology without results at this time. Throughout her stay the pancreatic enzymes returned to near normal. Blood glucose levels were more controlled on insulin. Her symptoms had resolved and she was deemed appropriate for discharge home and to follow up with Gastroenterology for irritable bowel disease pathology results. DISCHARGE VITAL SIGNS: Temperature 97.7, heart rate 58, respiratory rate 18, blood pressure 170/85, and O2 saturation 100% on room air. DISCHARGE LAB DATA: White blood cells 7,000, hemoglobin 12, hematocrit 37, and platelet count 193. Sodium 144, potassium 3.3, BUN 7, creatinine 0.6, glucose 170, and calcium 8.5. PERTINENT IMAGING: On 07/16/[address] showed a long segment of moderately distended ileum up to the ileocecal valve with wall thickening indicating ileitis, consider infectious and inflammatory etiologies. There was interval resolution of the splenomegaly that was seen on a previous study and the pancreas appeared normal. On 07/16/2018 abdominal ultrasound was unremarkable. EKG performed on 07/15/2018 showed normal sinus rhythm, rate of 71, with QTc of 428. DISCHARGE DIET: Diabetic. DISCHARGE ACTIVITY: As tolerated. DISCHARGE MEDICATIONS: Insulin 15 units subcutaneously daily and metformin 500 mg p.o. DISCHARGE FOLLOW UPS: Dr. Cheung or Dr. Rangel in 2 to 3 weeks for results of IBD pathology results and to follow up with her primary care provider, Dr. Mae. DISCHARGE INSTRUCTIONS: If symptoms return please seek medical advice, which include but are not limited to shortness of breath, increased fatigue, excessive bleeding, unexplained weight loss or gain, unimaginable pains, fever, chills, nausea, vomiting, or diarrhea. DISCHARGE DISPOSITION: Home. Dictated by [facility] Ju[facility] for Kai Navarro MD Addendum: Patient seen and examined by myself. Agree with [facility] note. It reflects my assessment and plan. Patient is being discharged from hospital in stable condition. Dietitian will see this patient before discharge for new onset diabetes. cc: [facility] Juarez MD [id number]
== END 2018-07-21 12:16 | disposition home or self-care (01) | DRG 392 ==
LOC: ED 20:43 → 3N 20:44 → SUATTDRO 20:44
PROVIDERS: ATTEND Internal Medicine
CPT/HCPCS: 74177; 76700; 80048; 80053; 80061; 81001; 82009; 82150; 82805; 82948; 83036; 83520; 83690; 85025; 85651; 86140; 86255; 86671; 87045; 87046; 87177; 87205; 87324; 87449; 88305; 88313; 89055; 93005; 96360; 96361; 96372; 97161; 99285; A9270; C9113; J0131; J0500; J1885; J2270; J2405; J7030; Q9967; S0164; XXXXX